=== PATIENT | male | born 1975 | race African-American/Black ===

== ENCOUNTER 2018-05-25 02:18 | Emergency (ER) | payer BC, OTHER ==
[~2018-05-25] VITALS: Ht 185.4 cm; Wt 106.8 kg
[~2018-05-25 02:18] MED LIST: ACHD5005 PO; AGM875T PO; AMOX500C2 PO; BENZ200C25 PO; CAPS60CR3 TP; CEPH500C PO; CYCL10TA9 PO; FLUT16SP22 NS; HSCO125 SL; HYDR-1231 PO; IBUP-1773 PO; LORA10CA PO; LORA1TAB59 PO; MELO15TA14 PO; NAPR-243 PO; OXYC-12 PO; PALI1.5T PO; PRD20T PO
--- OUTSIDE RECORDS SUMMARY | 2018-05-25 02:25 | XMS REPORT ---
Author Author CHINMAY BILLY Organization [facility] Address [address] [place] [address] Care Team Providers Care Ornithology Teacher Name Role Phone CHINMAY BILLY Unavailable PROBLEMS Type Condition ICD9-CM Code [id number] Code Onset Dates Condition Status SNOMED Code Problem Low back pain M54.5 Active 055140446 Problem Primary insomnia F51.01 Active 6890324 Problem Counseling on other sexually transmitted diseases V65.45 Active 534144662 Problem Other chronic pain G89.29 Active 21247455 Problem Lumbago 724.2 Active 109518676 ALLERGIES No Known Allergies ENCOUNTERS Encounter Location Date Diagnosis [facility] [address] [address] Jan, Low back pain M54.5 [facility] [address] [address] Jan, [facility] [id number] [place] [address] 56200- 1437 Sep, Low back pain M54.5 ; Other chronic pain G89.29 ; Pain in left hip M25.552 and Pain in right knee M25.561 [facility] [id number] [place] [address]63- 9588 Jul, Low back pain M54.5 and Other chronic pain G89.29 [facility] [address] [address] Apr, Low back pain M54.5 ; Other chronic pain G89.29 and Primary insomnia F51.01 [facility] [address] [id number] Mar, Dental examination Z01.20 [facility] [address] [id number] Jan, Dental examination Z01.20 [facility] [address] [place] [address] 021061- 2696 Dec, Acute bilateral low back pain without sciatica M54.5 and Arm pain, left M79.602 [facility] [address] [place] [address]90 [address]406 Dec, Arm pain, left M79.602 and Forearm strain, left, initial encounter S56.912A [facility] [id number] [place] [address] [id number] Jun, Dental examination Z01.20 [facility] [id number] [place] [address] 240693- 9566 May, Encounter for dental examination and cleaning without abnormal findings Z01.20 [facility] [address] [place] [address] 05 Oct, 2015 Low back pain M54.5 [facility] [id number] [place] [address] 63[address]- 3306 Dec, Genital warts 078.11 [facility] [address] [place] [address] 380584- 3453 Nov, Genital warts 078.11 [facility] [address] [place] [address] 98380- 3515 October, Genital warts 078.11 [facility] [address] [address] 8[address] Sep, [facility] [id number] [place] [address] 18711- 6400 Sep, [facility] [address] [place] [address] [id number]- 1083 May, [facility] [address] [place] [address] 26730- 2637 May, [facility] [address] [facility] [id number] [address] Jul, [facility] [address] [id number] [address] 4268 May, [facility] [address] [id number] [address] 1785 May, [facility] [address] [address]- 9[address] May, [facility] [address] [facility] [id number] [address] Apr, [facility] [address] [id number] [address] Apr, IMMUNIZATIONS No Known Immunizations SOCIAL HISTORY Never Assessed REASON FOR VISIT Pain management (chronic) Pt in for f/u on back pain, states pain is about the same SALLY Padilla PLAN OF CARE VITAL SIGNS Height 74 in 2018-02-25 Weight 224.8 lbs 2018-02-25 Temperature 97.8 degrees Fahrenheit 2018-02-25 Heart Rate 92 bpm 2018-02-25 Respiratory Rate 20 2018-02-25 BMI 28.86 kg/m2 2018-02-25 Blood pressure systolic 128 mmHg 2018-02-25 Blood pressure diastolic 80 mmHg 2018-02-25 MEDICATIONS Medication Instructions Dosage Frequency Start Date End Date Duration Status Cyclobenzaprine HCl 10 MG Orally 2 times a day 1 tablet 12h Active Tylenol 325 MG Orally every 6 hrs 1 tablet as needed 6h Active Benadryl Allergy 25 MG Orally every 6 hrs 1 tablet as needed 6h Active Tramadol HCl 50 mg Orally every 6 hrs 1 tablet as needed 6h Apr, Active RESULTS No Results PROCEDURES No Known procedures INSTRUCTIONS MEDICATIONS ADMINISTERED No Known Medications MEDICAL (GENERAL) HISTORY Type Description Date Medical History Counseling on other sexually transmitted diseases Medical History Lumbago
--- OUTSIDE RECORDS SUMMARY | 2018-05-25 02:25 | XMS REPORT ---
Author Author CHINMAY BILLY Organization [facility] Address [address] [place] [address] Care Team Providers Care Puppet Engineer Name Role Phone CHINMAY BILLY Unavailable PROBLEMS Type Condition ICD9-CM Code [id number] Code Onset Dates Condition Status SNOMED Code Problem Low back pain M54.5 Active 166166998 Problem Primary insomnia F51.01 Active 5915402 Problem Counseling on other sexually transmitted diseases V65.45 Active 368741063 Problem Other chronic pain G89.29 Active 13737281 Problem Lumbago 724.2 Active 709241463 ALLERGIES No Information ENCOUNTERS Encounter Location Date Diagnosis [facility] [address] [address] Jan, Low back pain M54.5 [facility] [address] [address]- [address] Jan, [facility] [address] [address]- [address] Sep, Low back pain M54.5 ; Other chronic pain G89.29 ; Pain in left hip M25.552 and Pain in right knee M25.561 [facility] [id number] [place] [address]28- 8020 Jul, Low back pain M54.5 and Other chronic pain G89.29 [facility] [address] [address]- [address] Apr, Low back pain M54.5 ; Other chronic pain G89.29 and Primary insomnia F51.01 [facility] [id number] [place] [address] [id number] Mar, Dental examination Z01.20 [facility] [address] [id number] Jan, Dental examination Z01.20 [facility] [address] [place] [address] 94822- 0956 Dec, Acute bilateral low back pain without sciatica M54.5 and Arm pain, left M79.602 [facility] [address] [place] [address] 47780 -4416 Dec, Arm pain, left M79.602 and Forearm strain, left, initial encounter S56.912A [facility] [id number] [place] [address] [id number] Jun, Dental examination Z01.20 [facility] [id number] [place] [address] 27931- 1456 May, Encounter for dental examination and cleaning without abnormal findings Z01.20 [facility] [address] [place] [address] 570234 -[address] 05 Oct, 2015 Low back pain M54.5 [facility] [address] [place] [address] 57605- 1441 Dec, Genital warts 078.11 [facility] [id number] [place] [address] 879600- 9346 Nov, Genital warts 078.11 [facility] [address] [place] [address] 446495- 0256 October, Genital warts 078.11 [facility] [address] [place] [address] [phone]- 4017 Sep, [facility] [id number] [place] [address] 18537- 5863 Sep, [facility] [id number] [place] [address] 193276- 5244 May, [facility] [address] [place] [address] 727565- 3266 May, [place] [address] [id number] [address] Jul, [facility] [address] [address] May, [facility] [address] [address] May, [facility] [address] [address] 9[address] May, [facility] [id number] [address]- [address] Apr, [facility] [id number], [place] [address]- 7[address] Apr, IMMUNIZATIONS No Known Immunizations SOCIAL HISTORY Never Assessed REASON FOR VISIT Denied refill PLAN OF CARE VITAL SIGNS MEDICATIONS No Known Medications RESULTS No Results PROCEDURES No Known procedures INSTRUCTIONS MEDICATIONS ADMINISTERED No Known Medications MEDICAL (GENERAL) HISTORY Type Description Date Medical History Counseling on other sexually transmitted diseases Medical History Lumbago
--- OUTSIDE RECORDS SUMMARY | 2018-05-25 02:26 | XMS REPORT ---
Author Author CHINMAY BILLY Organization [facility] Address [address] [place] [address] Care Team Providers Care Chemical Handler Name Role Phone CHINMAY BILLY Unavailable PROBLEMS Type Condition ICD9-CM Code DFT68-BT Code Onset Dates Condition Status SNOMED Code Problem Primary insomnia F51.01 Active 5017982 Problem Other chronic pain G89.29 Active 85818639 Problem Lumbago 724.2 Active 801380230 Problem Counseling on other sexually transmitted diseases V65.45 Active 275425832 ALLERGIES No Known Allergies ENCOUNTERS Encounter Location Date Diagnosis [facility] [id number] [place] [address] 20065- 5814 Sep, Low back pain M54.5 ; Other chronic pain G89.29 ; Pain in left hip M25.552 and Pain in right knee M25.561 [facility] [address] [address]- [address] Jul, Low back pain M54.5 and Other chronic pain G89.29 [facility] [id number] [place] [address] 78612- 9416 Apr, Low back pain M54.5 ; Other chronic pain G89.29 and Primary insomnia F51.01 [facility] [address] [place] [address] [id number] Mar, Dental examination Z01.20 [facility] [id number] [place] [address] [id number] Jan, Dental examination Z01.20 [facility] [id number] [place] [address] 09890- 0691 Dec, Acute bilateral low back pain without sciatica M54.5 and Arm pain, left M79.602 [facility] [address], [place] [address] 03 Dec, 2016 Arm pain, left M79.602 and Forearm strain, left, initial encounter S56.912A [facility] [address] [id number] 28 Jun, 2016 Dental examination Z01.20 [facility] [id number] [place] [address] 70828- 7722 07 May, 2016 Encounter for dental examination and cleaning without abnormal findings Z01.20 [facility] [address], [place] [address] 05 Oct, 2015 Low back pain M54.5 [facility] [id number] [place] [address] 02452- 4819 08 Dec, 2014 Genital warts 078.11 [facility] [id number] [place] [address] 07914- 4613 Nov, Genital warts 078.11 [facility] [id number] [place] [address] 32955- 5177 October, Genital warts 078.11 [facility] [id number] [place] [address] 23509- 8704 14 Sep, 2014 [facility] [address] [place] [address] 19753- 4119 Sep, [facility] [id number] [place] [address] 72993- 8396 May, [facility] [id number] [place] [address] 38435- 2653 May, [facility] [id number] [place] [address] 25668- 4546 Jul, [facility] [id number] [place] [address] 63460- 8318 May, [facility] [id number] [place] [address] 10224- 1086 May, [facility] [address] [facility] [id number] [place] [address]- 7056 May, [facility] [address] [facility] [id number] [address]- [address] Apr, [facility] [address] [facility] [id number] [place] [address]- 2226 Apr, IMMUNIZATIONS No Known Immunizations SOCIAL HISTORY Never Assessed REASON FOR VISIT Pain management (chronic)----LeightonttYessy PLAN OF CARE VITAL SIGNS Height 74 in 2017-07-09 Weight 225 lbs 2017-07-09 Temperature 97.8 degrees Fahrenheit 2017-07-09 Heart Rate 70 bpm 2017-07-09 Respiratory Rate 20 2017-07-09 BMI 28.89 kg/m2 2017-07-09 Blood pressure systolic 144 mmHg 2017-07-09 Blood pressure diastolic 82 mmHg 2017-07-09 MEDICATIONS Medication Instructions Dosage Frequency Start Date End Date Duration Status Cyclobenzaprine HCl 10 mg Orally 2 times a day 1 tablet as needed 12h Apr, Active Naproxen 500 mg Orally every 12 hrs 1 tablet as needed 12h Dec, Not-Taking Tramadol HCl 50 mg Orally every 6 hrs 1 tablet as needed 6h Apr, Active Tylenol 325 MG Orally every 6 hrs 1 tablet as needed 6h Not-Taking Condylox 0.5 % Externally Twice a day 1 application to affected area 12h Not-Taking Amoxicillin 500 MG Orally every 8 hrs 1 tablet 8h 7 days Not-Taking Benadryl Allergy 25 MG Orally every 6 hrs 1 tablet as needed 6h Not-Taking Aspirin 325 MG Orally Once a day 1 tablet as needed 24h Not-Taking RESULTS No Results PROCEDURES No Known procedures INSTRUCTIONS MEDICATIONS ADMINISTERED No Known Medications MEDICAL (GENERAL) HISTORY Type Description Date Medical History Counseling on other sexually transmitted diseases Medical History Lumbago
--- OUTSIDE RECORDS SUMMARY | 2018-05-25 02:26 | XMS REPORT ---
Author Author CHINMAY BILLY Organization [facility] Address [address] [place] [address] Care Team Providers Care Pottery Decorator Name Role Phone CHINMAY BILLY Unavailable PROBLEMS Type Condition ICD9-CM Code EBX55-QW Code Onset Dates Condition Status SNOMED Code Problem Primary insomnia F51.01 Active 1199859 Problem Other chronic pain G89.29 Active 01065333 Problem Lumbago 724.2 Active 978118143 Problem Counseling on other sexually transmitted diseases V65.45 Active 089312684 ALLERGIES No Known Allergies ENCOUNTERS Encounter Location Date Diagnosis [facility] [id number] [place] [address]69- 8045 Sep, Low back pain M54.5 ; Other chronic pain G89.29 ; Pain in left hip M25.552 and Pain in right knee M25.561 [facility] [address] [address]- [address] Jul, Low back pain M54.5 and Other chronic pain G89.29 [facility] [id number] [place] [address] 97957- 3854 Apr, Low back pain M54.5 ; Other chronic pain G89.29 and Primary insomnia F51.01 [facility] [address] [place] [address] [id number] Mar, Dental examination Z01.20 [facility] [id number] [place] [address] [id number] Jan, Dental examination Z01.20 [facility] [id number] [place] [address] 57250- 6237 Dec, Acute bilateral low back pain without sciatica M54.5 and Arm pain, left M79.602 [facility] [address] [address] 03 Dec, 2016 Arm pain, left M79.602 and Forearm strain, left, initial encounter S56.912A [facility] [address] [id number] 28 Jun, 2016 Dental examination Z01.20 [facility] [id number] [place] [address] 23009- 0975 07 May, 2016 Encounter for dental examination and cleaning without abnormal findings Z01.20 [facility] [address] [address] 05 Oct, 2015 Low back pain M54.5 [facility] [id number] [place] [address] 69220- 1451 08 Dec, 2014 Genital warts 078.11 [facility] [id number] [place] [address] 48775- 6741 Nov, Genital warts 078.11 [facility] [id number] [place] [address] 51914- 7001 October, Genital warts 078.11 [facility] [id number] [place] [address] 41041- 2193 14 Sep, 2014 [facility] [address] [place] [address] 31040- 7204 Sep, [facility] [address] [place] [address] 84359- 5026 May, [facility] [address] [place] [address] 31378- 4092 May, [facility] [id number] [place] [address] 62470- 1349 Jul, [facility] [id number] [place] [address] 71447- 9422 May, [facility] [id number] [place] [address] 37205- 3336 May, [facility] [address] [facility] [id number] [place] [address]- 5666 May, [facility] [address] [facility] [id number] [place] [address]- 0986 Apr, [facility] [address] [facility] [id number] [place] [address]- 3156 Apr, IMMUNIZATIONS No Known Immunizations SOCIAL HISTORY Never Assessed REASON FOR VISIT Pain management (chronic)---ADRIANNA Kaminski2 PLAN OF CARE VITAL SIGNS Height 74 in 2017-10-17 Weight 220 lbs 2017-10-17 Temperature 98.1 degrees Fahrenheit 2017-10-17 Heart Rate 80 bpm 2017-10-17 Respiratory Rate 20 2017-10-17 BMI 28.24 kg/m2 2017-10-17 Blood pressure systolic 106 mmHg 2017-10-17 Blood pressure diastolic 76 mmHg 2017-10-17 MEDICATIONS Medication Instructions Dosage Frequency Start Date End Date Duration Status Amoxicillin 500 MG Orally every 8 hrs 1 tablet 8h 7 days Not-Taking Cyclobenzaprine HCl 10 MG Orally 2 times a day 1 tablet 12h Active Benadryl Allergy 25 MG Orally every 6 hrs 1 tablet as needed 6h Active Condylox 0.5 % Externally Twice a day 1 application to affected area 12h Not-Taking Tylenol 325 MG Orally every 6 hrs 1 tablet as needed 6h Active Tramadol HCl 50 mg Orally every 6 hrs 1 tablet as needed 6h 09 Apr, 2017 Active Aspirin 325 MG Orally Once a day 1 tablet as needed 24h Not-Taking Naproxen 500 mg Orally every 12 hrs 1 tablet as needed 12h Dec, Not-Taking RESULTS No Results PROCEDURES No Known procedures INSTRUCTIONS MEDICATIONS ADMINISTERED No Known Medications MEDICAL (GENERAL) HISTORY Type Description Date Medical History Counseling on other sexually transmitted diseases Medical History Lumbago
--- OUTSIDE RECORDS SUMMARY | 2018-05-25 02:26 | XMS REPORT ---
Author Author KERRY KHAN Organization [facility] Address [address] [place] [address] Care Team Providers Care Clinical Education Consultant Name Role Phone KERRY KHAN Unavailable PROBLEMS Type Condition ICD9-CM Code [id number] Code Onset Dates Condition Status SNOMED Code Problem Primary insomnia F51.01 Active 5356001 Problem Other chronic pain G89.29 Active 09323131 Problem Lumbago 724.2 Active 266337469 Problem Counseling on other sexually transmitted diseases V65.45 Active 094450979 ALLERGIES No Known Allergies ENCOUNTERS Encounter Location Date Diagnosis [facility] [address] [address] Sep, Low back pain M54.5 ; Other chronic pain G89.29 ; Pain in left hip M25.552 and Pain in right knee M25.561 [facility] [address] [address] Jul, Low back pain M54.5 and Other chronic pain G89.29 [facility] [address] [address] Apr, Low back pain M54.5 ; Other chronic pain G89.29 and Primary insomnia F51.01 [facility] [id number] [place] [id number] Mar, Dental examination Z01.20 [facility] [address] [id number] Jan, Dental examination Z01.20 [facility] [id number] [place] [address] Dec, Acute bilateral low back pain without sciatica M54.5 and Arm pain, left M79.602 [facility] [address], [place] [address] Dec, Arm pain, left M79.602 and Forearm strain, left, initial encounter S56.912A [facility] [address] [id number] 28 Jun, 2016 Dental examination Z01.20 [facility] [id number] [place] [phone] 07 May, 2016 Encounter for dental examination and cleaning without abnormal findings Z01.20 [facility] [id number] [place] [phone] 05 Oct, 2015 Low back pain M54.5 [facility] [address] [place] [address] 08 Dec, 2014 Genital warts 078.11 [facility] [id number] [place] [address] Nov, Genital warts 078.11 [facility] [id number] [place] [address] October, Genital warts 078.11 [facility] [id number] [place] [address] Sep, [facility] [address], [place] [address] Sep, [facility] [id number] [place] [phone] May, [facility] [address] [place] [address] May, [facility] [id number] [place] [address] Jul, [facility] [address] [address] May, [facility] [id number] [place] [address] May, [facility] [address] [facility] [id number] [place] [address] May, [facility] [address] [facility] [id number] [address] Apr, [facility] [address] [facility] [id number] [place] [address] Apr, IMMUNIZATIONS No Known Immunizations SOCIAL HISTORY Never Assessed REASON FOR VISIT perez PLAN OF CARE Activity Details Follow Up prn Reason:misti/hygiene VITAL SIGNS Height 74 in 2017-03-21 Blood pressure systolic 151 mmHg 2017-03-21 Blood pressure diastolic 95 mmHg 2017-03-21 MEDICATIONS Medication Instructions Dosage Frequency Start Date End Date Duration Status Benadryl Allergy 25 MG Orally every 6 hrs 1 tablet as needed 6h Active Clindamycin HCl 150 MG Orally every 6 hrs 2 capsules 6h Mar, Mar, 7 days Active RESULTS No Results PROCEDURES Procedure Date Ordered Result Body Site LTD ORAL EVALUATION - PROBLEM FOCUS Mar 21, 2017 INTRAORL-PERIAPICAL 1 FILM 58722 Mar 21, 2017 BITEWING - SINGLE FILM Mar 21, 2017 INSTRUCTIONS MEDICATIONS ADMINISTERED No Known Medications MEDICAL (GENERAL) HISTORY Type Description Date Medical History Counseling on other sexually transmitted diseases Medical History Lumbago
--- OUTSIDE RECORDS SUMMARY | 2018-05-25 02:26 | XMS REPORT ---
Author Author CHINMAY BILLY Organization [facility] Address [address] [place] [address] Care Team Providers Care Varsity Baseball Coach Name Role Phone CHINMAY BILLY Unavailable PROBLEMS Type Condition ICD9-CM Code [id number] Code Onset Dates Condition Status SNOMED Code Problem Primary insomnia F51.01 Active 4553425 Problem Other chronic pain G89.29 Active 20447321 Problem Lumbago 724.2 Active 281566091 Problem Counseling on other sexually transmitted diseases V65.45 Active 823134358 ALLERGIES No Known Allergies ENCOUNTERS Encounter Location Date Diagnosis [address] [address] Sep, [facility] [address] [address] Jul, Low back pain M54.5 and Other chronic pain G89.29 [facility] [address] [place] [address] Apr, Low back pain M54.5 ; Other chronic pain G89.29 and Primary insomnia F51.01 [facility] [id number] [place] [phone] Mar, Dental examination Z01.20 [facility] [address] [id number] Jan, Dental examination Z01.20 [facility] [address] [address] Dec, Acute bilateral low back pain without sciatica M54.5 and Arm pain, left M79.602 [facility] [id number] [place] [address] Dec, Arm pain, left M79.602 and Forearm strain, left, initial encounter S56.912A [facility] [address] [phone] Jun, Dental examination Z01.20 [facility] [id number] [place] [address] 07 May, 2016 Encounter for dental examination and cleaning without abnormal findings Z01.20 [facility] [id number] [place] [phone] 05 Oct, 2015 Low back pain M54.5 [facility] [id number] [place] [address] Dec, Genital warts 078.11 [facility] [id number] [place] [address] Nov, Genital warts 078.11 [facility] [id number] [place] [address] October, Genital warts 078.11 [facility] [id number] [place] [address] Sep, [facility] [id number] [place] [address] Sep, [facility] [id number] [address] May, [facility] [id number] [address] May, [facility] [address] [place] [address] Jul, [facility] [id number] [place] [phone] May, [facility] [address] [place] [address] May, [facility] [id number] [place] [address] May, [facility] [address] [facility] [id number] [place] [address] Apr, [facility] [address] [facility] [id number] [place] [address] Apr, IMMUNIZATIONS No Known Immunizations SOCIAL HISTORY Never Assessed REASON FOR VISIT Establish Care/ Arm Injury. Left forearm has been hurting x 1 month. 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 Analia Guerrero, Julia PLAN OF CARE VITAL SIGNS Height 74 in 2017-01-29 Weight 233 lbs 2017-01-29 Temperature 97.9 degrees Fahrenheit 2017-01-29 Heart Rate 76 bpm 2017-01-29 Respiratory Rate 18 2017-01-29 BMI 29.91 kg/m2 2017-01-29 Blood pressure systolic 100 mmHg 2017-01-29 Blood pressure diastolic 70 mmHg 2017-01-29 MEDICATIONS Medication Instructions Dosage Frequency Start Date End Date Duration Status PredniSONE 20 mg Orally Once a day 2 tablets 24h Dec, Jan, 05 days Active Benadryl Allergy 25 MG Orally every 6 hrs 1 tablet as needed 6h Active Naproxen 500 mg Orally every 12 hrs 1 tablet as needed 12h Dec, Active RESULTS No Results PROCEDURES No Known procedures INSTRUCTIONS MEDICATIONS ADMINISTERED No Known Medications MEDICAL (GENERAL) HISTORY Type Description Date Medical History Counseling on other sexually transmitted diseases Medical History Lumbago
--- OUTSIDE RECORDS SUMMARY | 2018-05-25 02:26 | XMS REPORT ---
Author Author DANIELLE VILLANUEVA [facility] Address Unknown Care Team Providers Care Public Opinion Survey Taker Name Role Phone KAYDANIELLE Unavailable PROBLEMS Type Condition ICD9-CM Code [id number] Code Onset Dates Condition Status SNOMED Code Problem Lumbago 724.2 Active 068826853 Problem Counseling on other sexually transmitted diseases V65.45 Active 993019970 ALLERGIES Substance Reaction Event Type Date Status N.K.D.A. Unknown Non Drug Allergy Jun, Unknown SOCIAL HISTORY No smoking Hx information available PLAN OF CARE Activity Details Follow Up prn Reason:hygeine VITAL SIGNS Height 74 in 2016-06-28 Blood pressure systolic 129 mmHg 2016-06-28 Blood pressure diastolic 78 mmHg 2016-06-28 MEDICATIONS Medication Instructions Dosage Frequency Start Date End Date Duration Status Benadryl Allergy 25 MG Orally every 6 hrs 1 tablet as needed 6h Active RESULTS No Results PROCEDURES Procedure Date Ordered Related Diagnosis Body Site LTD ORAL EVALUATION - PROBLEM FOCUS Jun 28, 2016 PANORAMIC FILM SEE ALSO CODE 95059 Jun 28, 2016 IMMUNIZATIONS No Known Immunizations
--- OUTSIDE RECORDS SUMMARY | 2018-05-25 02:27 | XMS REPORT | Continuity of Care Document ---
Author Author [facility] Address Unknown Phone Unavailable Allergies Active Description Code Type Severity Reaction Onset Reported/Identified Relationship to Patient Clinical Status Yes No Known Drug Allergies [id number] Drug Allergy Unknown N/A 03/04/2011 Yes Depakote Drug Allergy 04/07/2011 Yes Depakote Drug Allergy N/A N/A 04/07/2011 Medications There is no data. Problems Date Dx Coded Attending Type Code Diagnosis Diagnosed By 03/04/2011 Ot 723.1 CERVICALGIA 03/04/2011 Ot 724.1 PAIN IN THORACIC SPINE 03/04/2011 Ot 724.2 LUMBAGO 03/21/2011 295.30 P SCHIZO PARANOID UNSPECIFIED 03/21/2011 KARL HUYNH APRN 295.30 P SCHIZO PARANOID UNSPECIFIED 03/21/2011 ANTOINE CALVIN DO 295.30 P SCHIZO PARANOID UNSPECIFIED 03/21/2011 295.30 P SCHIZO PARANOID UNSPECIFIED 2011 300.00 AN ANXIETY UNSPEC 2011 KARL HUYNH APRN 300.00 AN ANXIETY UNSPEC 2011 ANTOINE CALVIN DO 300.00 AN ANXIETY UNSPEC 2011 300.00 AN ANXIETY UNSPEC 04/05/2011 477.9 RHINITIS 04/05/2011 KARL HUYNH APRN 477.9 RHINITIS 04/05/2011 ANTOINE CALVIN DO 477.9 RHINITIS 04/05/2011 477.9 RHINITIS 04/07/2011 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 04/07/2011 KARL HUYNH APRN 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 04/07/2011 ANTOINE CALVIN DO 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 04/07/2011 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 07/13/2012 V04.81 FLU SHOT 07/13/2012 V65.45 STD COUNSELING 07/13/2012 KARL HUYNH APRN V04.81 FLU SHOT 07/13/2012 KARL HUYNH APRN Shar V65.45 STD COUNSELING 07/13/2012 ANTOINE CALVIN DO V04.81 FLU SHOT 07/13/2012 ANTOINE CALVIN DO V65.45 STD COUNSELING 04/04/2014 STACY STROUD Ot 724.4 LUMBOSACRAL NEURITIS NOS 04/04/2014 STACY STROUD Ot 959.19 OTH INJURY OF OTHER SITES OF TRUNK 04/04/2014 STACY STROUD Ot E000.0 CIVILIAN ACTIVITY DONE FOR INCOME OR PAY 04/04/2014 STACY STROUD Ot E849.3 ACC ON Floxx PREMISES 04/04/2014 STACY STROUD Ot E927.0 OVEREXERTION FROM SUDDEN STRENUOUS MOVEM 04/12/2014 TONG GUTHRIE APRN Ot 724.2 LUMBAGO 04/12/2014 TONG GUTHRIE APRN Ot 724.4 LUMBOSACRAL NEURITIS NOS 05/20/2014 KARL HUYNH APRN 724.2 BACK PAIN, LOWER 05/20/2014 ANTOINE CALVIN DO K 724.2 BACK PAIN, LOWER 09/29/2014 ANTOINE CALVIN DO K 078.10 VIRAL WARTS UNSPECIFIED 12/16/2014 RADU POP DO Ot 473.9 CHRONIC SINUSITIS NOS 12/16/2014 RADU POP DO Ot 786.2 COUGH 05/22/2016 JYOTI MALDONADO MD Ot S39.92XA UNSPECIFIED INJURY OF LOWER BACK, INITIA 05/22/2016 JYOTI MALDONADO MD Ot S40.011A CONTUSION OF RIGHT SHOULDER, INITIAL ENC 05/22/2016 JYOTI MALDONADO MD Ot W18.2XXA FALL IN (INTO) SHOWER OR EMPTY BATHTUB, 05/22/2016 JYOTI MALDONADO MD Ot Y92.[address] OR NOT APPLICABLE 05/22/2016 JYOTI MALDONADO MD Ot Y93.E5 ACTIVITY, FLOOR MOPPING AND CLEANING 05/22/2016 JYOTI MALDONADO MD Ot Y99.8 OTHER EXTERNAL CAUSE STATUS 05/24/2016 JYOTI MALDONADO MD Ot S39.92XA UNSPECIFIED INJURY OF LOWER BACK, INITIA 05/24/2016 JYOTI MALDONADO MD Ot S40.011A CONTUSION OF RIGHT SHOULDER, INITIAL ENC 05/24/2016 JYOTI MALDONADO MD Ot W18.2XXA FALL IN (INTO) SHOWER OR EMPTY BATHTUB, 05/24/2016 JYOTI MALDONADO MD Ot Y92.[address] OR NOT APPLICABLE 05/24/2016 JYOTI MALDONADO MD Ot Y93.E5 ACTIVITY, FLOOR MOPPING AND CLEANING 05/24/2016 JYOTI MALDONADO MD Ot Y99.8 OTHER EXTERNAL CAUSE STATUS 06/01/2016 JYOTI MALDONADO MD Ot S39.92XA UNSPECIFIED INJURY OF LOWER BACK, INITIA 06/01/2016 JYOTI MALDONADO MD Ot S40.011A CONTUSION OF RIGHT SHOULDER, INITIAL ENC 06/01/2016 JYOTI MALDONADO MD Ot W18.2XXA FALL IN (INTO) SHOWER OR EMPTY BATHTUB, 06/01/2016 JYOTI MALDONADO MD Ot Y92.[address] OR NOT APPLICABLE 06/01/2016 JYOTI MALDONADO MD Ot Y93.E5 ACTIVITY, FLOOR MOPPING AND CLEANING 06/01/2016 JYOTI MALDONADO MD Ot Y99.8 OTHER EXTERNAL CAUSE STATUS Procedures There is no data. Results There is no data. Encounters ACCT No. Visit Date/Time Discharge Status Pt. Type Provider Facility Loc./Unit Complaint [id number] 09/29/2014 10:30:00 09/29/2014 23:59:59 CLS Outpatient ANTOINE CALVIN DO [id number] 05/20/2014 08:47:00 05/20/2014 23:59:59 CLS Outpatient KARL HUYNH APRN [id number] 07/13/2012 13:04:00 07/13/2012 23:59:59 CLS Outpatient [id number] 04/07/2011 12:14:00 04/07/2011 23:59:59 CLS Outpatient [id number] 10/17/2017 14:20:00 10/17/2017 23:59:59 CLS Outpatient CHINMAY BILLY APRN [facility] [id number] 05/22/2016 08:30:00 05/22/2016 09:14:00 DIS Emergency JYOTI MALDONADO MD [facility] ER FALL RIGHT SHOULDER/BACK PAIN [id number] 12/16/2014 18:12:00 12/16/2014 19:20:00 DIS Emergency RADU POP DO [facility] ER CONGESTION [id number] 04/12/2014 11:04:00 04/12/2014 11:38:00 DIS Emergency TONG GUTHRIE APRN [facility] ER BACK PAIN [id number] 04/04/2014 14:36:00 04/04/2014 17:06:00 DIS Emergency STACY STROUD [facility] ER LOWER BACK PAIN [id number] 08/27/2013 22:58:00 08/28/2013 00:03:00 DIS Emergency [id number] 03/03/2013 20:17:00 03/03/2013 21:39:00 DIS Emergency [id number] 03/04/2011 09:34:00 Document Registration [id number] 12/17/2014 02:12:00 ACT Document Registration
[2018-05-25] MEDS ORDERED: TETANUS,DIPTH,PERTUSS P/F (BOOSTRIX) 0.5 ML VIAL IM ONE (02:45)
[2018-05-25] MEDS ORDERED: LIDOCAINE 1% INJ 20 ML 20 ML VIAL INJ ONE (02:45)
[2018-05-25] MEDS ORDERED: IBUPROFEN 800 MG (MOTRIN) TAB PO ONE (02:45)
--- NOTE | 2018-05-25 02:46 | ED Integumentary General ---
General Stated Complaint: RT HAND LAC Source: patient, other Exam Limitations: no limitations History of Present Illness Date Seen by Provider: May 25, 2018 Time Seen by Provider: 02:35 Initial Comments Patient presents to ER by private conveyance with significant other and chief complaint that he cut his left thumb on a piece of glass around 11:00 last night and thought he had to stop bleeding but it's continued use. He does not ever last time as had a tetanus shot but he assured been more than 5 years. He did not take anything for the pain but he would take something if we had something for it. No allergies to any medicines. Still has sensation in his all 5 digits of his left hand. Allergies and Home Medications Allergies Coded Allergies: No Known Drug Allergies (Unverified , 03/04/11) Home Medications Capsaicin 60 Gm Cream..g., 60 GM TP QID PRN for BACK PAIN Prescribed by: JYOTI MALDONADO on 05/22/16 09 Cyclobenzaprine HCl 10 Mg Tablet, 10 MG PO Q8H PRN for SPASMS Prescribed by: JYOTI MALDONADO on 05/22/16 09 Loratadine 10 Mg Capsule, 10 MG PO DAILY, (Reported) Meloxicam 15 Mg Tablet, 15 MG PO DAILY PRN for BACK PAIN Prescribed by: JYOTI MALDONADO on 05/22/16 09 Patient Home Medication List Home Medication List Reviewed: Yes Review of Systems Review of Systems Constitutional: No chills, No diaphoresis EENTM: No ear discharge, No ear pain Respiratory: No cough, No short of breath Past Auvwjup-Fsbcvk-Mxwqkm Hx Patient Social History Alcohol Use: Denies Use Recreational Drug Use: No Smoking Status: Current Everyday Smoker Type Used: Cigarettes (0.5 ppd) Recent Foreign Travel: No Contact w/Someone Who Travel: No Recent Hopitalizations: No Seasonal Allergies Seasonal Allergies: Yes Past Medical History Hypertension Concussion, Traumatic Brain Injury Reproductive Disorders: No Fractures Schizophrenia Physical Exam Vital Signs Capillary Refill : General Appearance: WD/WN, no apparent distress HEENT: PERRL/EOMI, pharynx normal Neck: non-tender, full range of motion Cardiovascular: normal peripheral pulses, regular rate, rhythm Respiratory: no respiratory distress, no accessory muscle use Extremities: normal range of motion, normal capillary refill Neurologic/Psychiatric: no motor/sensory deficits, alert, normal mood/affect, oriented x 3 Skin: other (Right hand dorsum of the thumb has a 2.5 cm linear laceration gaping with mostly hemostatic. Into the dermis and subcutaneous tissue.) Procedures/Interventions Wound Location: Upper Extremities Other Wound Location Right hand dorsum of the great thumb first phalanx Wound Length (cm): 2.5 Wound's Depth, Shape: superficial, linear, sub Q Wound Explored: clean Irrigated w/ Saline (ccs): 100 Betadine Prep?: Yes Anesthesia: 1% Lidocaine (without epinephrine) Volume Anesthetic (ccs): 1 Wound Debrided: minimal Suture: Ethlion Suture Size: 4-0 Number of Sutures: 4 Progress Patient's hand was cleaned thoroughly with soap and water then cleaned with chlorhexidine soap water. The wound was thoroughly explored and no foreign debris was found. The wound edges were reapproximated and the edges were infiltrated with 1 cc of 1% lidocaine without epinephrine which gave him great anesthesia. We then placed for an individual simple interrupted sutures using 4- 0 Ethilon which resulted in good wound edge reapproximation and hemostasis. Patient tolerated procedure well. Progress/Results/Core Measures Results/Orders My Orders Orders - JYOTI MALDONADO Pertuss(Acell),Tet Adult (Boostrix (05/25/18 02:45) Ibuprofen Tablet (Motrin Tablet) (05/25/18 02:45) Lidocaine 1% Inj 20 Ml (Xylocaine 1% Inj (05/25/18 02:45) Departure Impression Primary Impression: Laceration of thumb Qualified Codes: S61.011A - Laceration without foreign body of right thumb without damage to nail, initial encounter Disposition: 01 HOME, SELF-CARE Condition: Improved Departure-Patient Inst. Decision time for Depature: 03:06 Referrals: [facility] (PCP) Primary Care Physician CHINMAY BILLY (Family) Primary Care Physician Patient Instructions: Laceration Repair With Stitches (DC) Add. Discharge Instructions: Keep the wound clean with regular soap and water or shampoo. It's okay to shower. Wear a glove while at work. Do not use your right hand to do any work for the next 2 days as it may loosen or open up and bleed again. Use Tylenol 1000 mg every 8 hours and/or ibuprofen 800 mg every 8 hours as well as ice and elevation as needed for swelling or pain. If this does not work you can use the tramadol 1 tablet every 6 hours. medical supply technician the antibiotics and use one tablet twice a day for the next 3 days to prevent infections in the hand. If you notice redness swelling or streaks going up your hand then you should present to your doctor sooner. Plan to return to the ER in 10-14 days to have the stitches removed. Scripts Tramadol HCl (Tramadol HCl) 50 Mg Tablet 50 MG PO Q6H PRN for PAIN, #10 TAB 0 Refills Prov: JYOTI MALDONADO 05/25/18 Sulfamethoxazole/Trimethoprim (Bactrim Ds Tablet) 1 Each Tablet 1 EACH PO BID for 3 Days, #6 TAB 0 Refills Prov: JYOTI MALDONADO 05/25/18 Work/School Note: Work Release Form Date Seen in the Emergency Department: May 25, 2018 Return to Work: May 25, 2018 Restrictions: Need Release from Doctor Other Restrictions Listed Below: Do not use right hand until 05/27/18. Wear gloves. JYOTI MALDONADO May 25, 2018 02:46
[2018-05-25] MEDS ORDERED: SULF1TAB35 PO (03:09)
[2018-05-25] MEDS ORDERED: TRAM50TA2 PO (03:09)
[2018-05-25 03:22] VITALS: BP 137/88
== END 2018-05-25 03:22 | disposition home or self-care (01) ==
LOC: EDUNIT# 02:18 → ER 02:22
DX: S61.012A Laceration without foreign body of left thumb without damage to nail, initial encounter (principal); I10 Essential (primary) hypertension; F20.9 Schizophrenia, unspecified; F17.210 Nicotine dependence, cigarettes, uncomplicated; Z23 Encounter for immunization; Z87.820 Personal history of traumatic brain injury; W25.XXXA Contact with sharp glass, initial encounter
CPT/HCPCS: 12041; 90471; 90715

== ENCOUNTER 2020-05-22 13:54 | Emergency (ER) | payer BC, OTHER ==
[~2020-05-22] VITALS: Ht 185 cm; Wt 99.7 kg
[~2020-05-22 13:54] MED LIST changes: -CAPS60CR3 TP; +CAPS60CR4 TP; +SULF1TAB35 PO; +TRM50T PO
--- NOTE | 2020-05-22 14:09 | ED Back Pain ---
General Chief Complaint: Back Problems Stated Complaint: BACK PAIN Nursing Triage Note: PT REPORTS BACK PAIN X'S 1 WEEK. PT DENIES KNOWN INJURY. [facility] AND WAS GIVEN A STERIOD AND PAIN MEDICATION. PT DENIES IMPROVEMENT. PT AMB TO ROOM 03 WITHOUT DIFFICULTY. Nursing Sepsis Screen: No Definite Risk Source of Information: Patient Exam Limitations: No Limitations History of Present Illness Date Seen by Provider: May 22, 2020 Time Seen by Provider: 14:09 Initial Comments To Er with c/o right lower back pain x2-3 weeks. No known injury. Has seen chiropractor x2, given 5 days of prednisone which he completed last week, given [place] 5/325 last week as well which is not helping. He cannot stand upright for more than just a very short time without having to bend forward which slightly alleviates the pain. No fevers or chills. No history of cancer, no IV drug use. No loss of bowel or bladder control. Pain radiates down the right leg to the mid thigh. Location: Lumbar Spine Timing/Duration: 1-2 Days Severity: Moderate Pain/Injury Location: Back Associated Symptoms: lower back pain Allergies and Home Medications Allergies Coded Allergies: No Known Drug Allergies (Unverified , 03/04/11) Home Medications Capsaicin 60 Gm Cream..g., 60 GM TP QID PRN for BACK PAIN Prescribed by: JYOTI MALDONADO on 05/22/16903 Cyclobenzaprine HCl 10 Mg Tablet, 10 MG PO Q8H PRN for SPASMS Prescribed by: JYOTI MALDONADO on 05/22/16900 Loratadine 10 Mg Capsule, 10 MG PO DAILY, (Reported) Meloxicam 15 Mg Tablet, 15 MG PO DAILY PRN for BACK PAIN Prescribed by: JYOTI MALDONADO on 05/22/16900 Sulfamethoxazole/Trimethoprim 1 Each Tablet, 1 EACH PO BID Prescribed by: JYOTI MALDONADO on 05/25/18308 Tramadol HCl 50 Mg Tablet, 50 MG PO Q6H PRN for PAIN Prescribed by: JYOTI MALDONADO on 05/25/18308 Patient Home Medication List Home Medication List Reviewed: Yes Review of Systems Constitutional: see HPI; No chills, No fever EENTM: see HPI Respiratory: no symptoms reported Cardiovascular: no symptoms reported Genitourinary: no symptoms reported Musculoskeletal: see HPI, back pain Skin: no symptoms reported Psychiatric/Neurological: No Symptoms Reported Past Ernsyzj-Cogwtk-Caabrg Hx Patient Social History Type Used: Cigarettes Recent Foreign Travel: No Contact w/Someone Who Travel: No Recent Infectious Disease Expo: No Recent Hopitalizations: No Immunizations Up To Date Tetanus Booster (TDap): More than 5yrs Seasonal Allergies Seasonal Allergies: Yes Past Medical History Surgeries: Yes (2005 BROKEN NECK, crushed skull, ear reattachment ) Respiratory: No Cardiac: Yes Hypertension Neurological: Yes Concussion, Traumatic Brain Injury Reproductive Disorders: No Gastrointestinal: No Musculoskeletal: Yes Fractures Endocrine: No Cancer: No Psychosocial: Yes Schizophrenia Integumentary: No Blood Disorders: No Physical Exam Vital Signs Vital Signs - First Documented 05/22/20 13:58 Temp 35.3 Pulse 90 Resp 18 B/P (MAP) 141/86 (104) O2 Delivery Room Air Capillary Refill : Less Than 3 Seconds Height, Weight, BMI Height: 6'1" Weight: 235lbs. 6.0oz. 106.896018vc; 29.00 BMI Method:Stated General Appearance: No Apparent Distress, WD/WN Neck: Full Range of Motion, Normal Inspection Respiratory: No Accessory Muscle Use, No Respiratory Distress Gastrointestinal: Normal Bowel Sounds, Non Tender, Soft Back: Normal Inspection; No Vertebral Tenderness Neurologic/Psychiatric: Alert, Oriented x3 Skin: Normal Color, Warm/Dry Procedures/Interventions Suture Size: 4-0 Progress/Results/Core Measures Results/Orders My Orders Orders - TONG GUTHRIE APRN Ed Iv/Invasive Line Start (05/22/20 14:08) Ns (Ivpb) (Sodium Chloride 0.9%) (05/22/20 14:15) Ketamine Syringe (Ed Only) (Ketamine Syr (05/22/20 14:15) Ct Lumbar Spine Wo (05/22/20 14:14) Cbc With Automated Diff (05/22/20 14:14) Vital Signs/I&O 05/22/20 13:58 Temp 35.3 Pulse 90 Resp 18 B/P (MAP) 141/86 (104) O2 Delivery Room Air Blood Pressure Mean: 104 Departure Impression Primary Impression: Lumbar radiculopathy Disposition: 01 HOME, SELF-CARE Condition: Stable Departure-Patient Inst. Decision time for Depature: 14:21 Referrals: [facility] (PCP) Primary Care Physician CHINMAY BILLY (Family) Primary Care Physician Patient Instructions: Radiculopathy (DC) Add. Discharge Instructions: 1. Return to er for any concerns 2. Follow up with your doctor next week All discharge instructions reviewed with patient and/or family. Voiced understanding. TONG GUTHRIE APRN May 22, 2020 14:09
[2020-05-22] MEDS ORDERED: KETAMINE/NaCl 50 MG/5 ML SYRINGE (ED ONLY) IV ONE (14:15)
[2020-05-22] MEDS ORDERED: NS (IVPB) 250 ML IV ONE (14:15)
[2020-05-22 14:30] LABS: BASOPHILS # (AUTO) 0.1 10^3/uL (0.0-0.1); BASOPHILS % (AUTO) 1 % (0-10); EOSINOPHILS # (AUTO) 0.2 10^3/uL (0.0-0.3); EOSINOPHILS % (AUTO) 2 % (0-10); HEMATOCRIT 44 % (40-54); HEMOGLOBIN 14.8 g/dL (13.3-17.7); LYMPHOCYTES # (AUTO) 3.1 10^3/uL (1.0-4.0); LYMPHOCYTES % (AUTO) 33 % (12-44); MEAN CORPUSCULAR HEMOGLOBIN 31 pg (25-34); MEAN CORPUSCULAR HGB CONC 34 g/dL (32-36); MEAN CORPUSCULAR VOLUME 92 fL (80-99); MEAN PLATELET VOLUME 9.4 fL (9.0-12.2); MONOCYTES # (AUTO) 0.4 10^3/uL (0.0-1.0); MONOCYTES % (AUTO) 5 % (0-12); NEUTROPHILS # (AUTO) 5.5 10^3/uL (1.8-7.8); NEUTROPHILS % (AUTO) 59 % (42-75); PLATELET COUNT 224 10^3/uL (130-400); WHITE BLOOD COUNT 9.3 10^3/uL (4.3-11.0)
--- NOTE | 2020-05-22 14:42 | Diagnostic Imaging Report ---
PROCEDURE: CT lumbar spine without contrast. TECHNIQUE: Multiple contiguous axial images were obtained through the lumbar spine without the use of intravenous contrast. Sagittal and coronal reformations were then performed. Auto Exposure Controls were utilized during the CT exam to meet ALARA standards for radiation dose reduction. DATE: May 22, 2020. INDICATION: 45-year-old male, low back pain for three weeks. Injury on Sunday. Pain extending down the right leg. COMPARISON: CT lumbar spine April 04, 2014. FINDINGS: There is no identified acute fracture of the lumbar spine. The lumbar spine is unremarkable in alignment. There is mild disc height loss at L2-L3 and L3-L4. There is limited assessment of disc pathology and additional nonbony causes of pathology in the spinal canal on CT. There does appear to be a diffuse disc bulge at L4-L5. There are right greater than left facet degenerative changes at L4-L5. There does appear to be left foraminal narrowing at L4-L5. There is also a probable diffuse disc bulge at L5-S1. There are mild bilateral facet degenerative changes at L3-L4. The sacroiliac joints are unremarkable in appearance. IMPRESSION: 1. No identified acute fracture or malalignment of the lumbar spine. 2. Disc and facet degenerative changes of the lumbar spine. MRI would be more optimal for assessment of disc pathology and evaluation of nonbony causes of foraminal and spinal stenosis. There does appear to be at least a diffuse disc bulge present at L4-L5 and L5-S1 with suspected left foraminal narrowing at L4-L5. Dictated by: Dictated on workstation # [id number]
[2020-05-22 15:20] VITALS: BP 143/89
== END 2020-05-22 15:21 | disposition home or self-care (01) ==
LOC: EDUNIT# 13:54 → ER 13:55
DX: M54.16 Radiculopathy, lumbar region (principal); Z87.820 Personal history of traumatic brain injury
CPT/HCPCS: 36415; 72131; 85025

== ENCOUNTER → 2021-09-09 | Outpatient (CLI) | payer BC ==
[~2021-09-09] MED LIST changes: +CYCL10TA25 PO; -SULF1TAB35 PO; +SULF1TAB38 PO
--- NOTE | 2021-09-09 09:45 | Diagnostic Imaging Report ---
PROCEDURE: MRI lumbar spine. TECHNIQUE: Multiplanar, multisequence MRI of the lumbar spine was performed without contrast. INDICATION: Lumbar stenosis, pain EXAMINATION:: Lumbar spine MRI 09/09/2021 FINDINGS: There is grade 1 anterolisthesis at L4-L5 with remaining alignment preserved. Vertebral body heights appear maintained. L1-L2: There is bilateral facet hypertrophy with no central stenosis. There is moderate bilateral neural foraminal narrowing. L2-L3: There is intervertebral space narrowing, disc desiccation and a mild broad-based bulging disc with bilateral facet and ligamentum flavum hypertrophy. There is no significant central stenosis. There is severe bilateral neural foraminal narrowing. L3-L4: There is intervertebral space narrowing, disc desiccation with a broad-based bulging disc. A central annular tear is noted. There is bilateral facet and ligamentum flavum hypertrophy. Findings flattening the ventral thecal sac without significant central stenosis. There is severe bilateral neural foraminal stenosis. L4-L5: There is intervertebral space narrowing, disc desiccation and a broad-based bulging disc with a left paracentral annular tear. There is bilateral facet and ligamentum flavum hypertrophy. There is [id number] central narrowing. There is severe bilateral neural foraminal narrowing. L5-S1: There is intervertebral space narrowing, disc desiccation and a broad-based bulging disc containing an annular tear posteriorly. There is bilateral facet hypertrophy. There is mild central stenosis with mild narrowing of the lateral recesses sees. There is severe bilateral neural foraminal stenosis. Both at the L4 and L5 levels there is nonspecific edema along the bilateral pedicles and adjacent facets. No definite associated fracture lines are seen. These findings could be reactive given the adjacent degenerative findings at these levels. A small pars defect could be missed on MRI and if there is continued clinical question CT could further evaluate. The visualized intra-abdominal structures appear unremarkable. IMPRESSION: 1. Multilevel diffuse degenerative disease with multilevel bilateral neural foraminal stenosis which appears severe. See above discussion 2. Edema within the pedicles and facets at L4 and L5 nonspecific but likely reactive. See above discussion. Dictated by: Dictated on workstation # [id number]
== END ==
LOC: RAD 07:24
PROVIDERS: ATTEND Pediatrics
DX: M47.816 Spondylosis without myelopathy or radiculopathy, lumbar region (principal); M47.817 Spondylosis without myelopathy or radiculopathy, lumbosacral region; M51.26 Other intervertebral disc displacement, lumbar region; M51.27 Other intervertebral disc displacement, lumbosacral region; M51.36 Other intervertebral disc degeneration, lumbar region; M51.37 Other intervertebral disc degeneration, lumbosacral region; M48.061 Spinal stenosis, lumbar region without neurogenic claudication; M48.02 Spinal stenosis, cervical region; M43.16 Spondylolisthesis, lumbar region
CPT/HCPCS: 72148